=== PATIENT | male | born 1970 | race Hispanic/Latino ===

== ENCOUNTER 2019-05-16 03:47 | Emergency (ER) | payer OTHER ==
[2019-05-16 04:07] LABS: BASOPHILS % (AUTO) 1.4 % (0.0-5.0); EOSINOPHILS % (AUTO) 1.2 % (0.0-8.0); HEMATOCRIT 37.9 % (42-54); LYMPHOCYTES % (AUTO) 47.3 % (21.0-51.0); MEAN CORPUSCULAR HEMOGLOBIN 34.6 pg (27.0-33.0); MEAN CORPUSCULAR VOLUME 98.7 fL (79-99); MONOCYTES % (AUTO) 8.5 % (3.0-13.0); NEUTROPHILS % (AUTO) 41.6 % (40.0-77.0); NUCLEATED RED BLOOD CELLS 0.1 % (0.0-0.19); PLATELET COUNT (AUTO) 286 K/uL (130-400); RED BLOOD CELL COUNT(AUTO) 3.84 MIL/uL (4.50-6.20); RED CELL DISTRIBUTION WIDTH 12.7 % (11.0-15.5); WHITE BLOOD COUNT (AUTO) 7.1 K/uL (4.8-10.8)
[2019-05-16 04:18] LABS: INR 0.94 (0.85-1.15); PROTHROMBIN TIME 9.9 SEC (9.6-11.6)
[2019-05-16 04:21] LABS: ALBUMIN 3.6 g/dL (3.5-5.0); BILIRUBIN,TOTAL 0.3 mg/dL (0.2-1.0); CREATININE 0.9 mg/dL (0.5-1.5); TOTAL PROTEIN, SERUM 8.1 g/dL (6.0-8.3)
[2019-05-16 04:31] LABS: B-TYPE NATRIURETIC PEPTIDE 32 pg/mL (0-100)
[2019-05-16] MEDS ORDERED: IOHEXOL 350 MG/ML 100ML INFUS..BTL IV ONE (04:39)
[2019-05-16] MEDS ORDERED: SODIUM CHLORIDE 0.9% 1000ML 1,000 ML IV ONE (04:45)
[2019-05-16] MEDS ORDERED: FAMOTIDINE/PF 20 MG/2 ML VIAL IV ONE (04:45)
[2019-05-16 05:00] LABS: APPEARANCE,URINE Clear (CLEAR); BILIRUBIN,URINE Negative (NEGATIVE); COLOR,URINE Yellow (YELLOW); GLUCOSE, URINE (UA) Negative (NEGATIVE); KETONES,URINE Negative (NEGATIVE); LEUKOCYTE ESTERASE ,URINE Negative (NEGATIVE); NITRATE,URINE Negative (NEGATIVE); OCCULT BLOOD,URINE Negative (NEGATIVE); PROTEIN,URINE Negative (NEGATIVE); UROBILINOGEN,URINE 0.2 mg/dL (0.2-1.0)
[2019-05-16 05:10] LABS: AMPHET/METH SCREEN,URINE NEGATIVE (NEGATIVE); BARBITURATE SCREEN, URINE NEGATIVE (NEGATIVE); BENZODIAZEPINES SCREEN,URINE NEGATIVE (NEGATIVE); CANNABINOID SCREEN,URINE NEGATIVE (NEGATIVE); COCAINE SCREEN,URINE POSITIVE (NEGATIVE); OPIATE SCREEN,URINE NEGATIVE (NEGATIVE); PHENCYCLIDINE SCREEN,URINE NEGATIVE (NEGATIVE)
== END 2019-05-16 07:01 | disposition home or self-care (01) ==
LOC: EDH 03:47
DX: R10.13 Epigastric pain (principal); E86.9 Volume depletion, unspecified; F10.10 Alcohol abuse, uncomplicated; F14.10 Cocaine abuse, uncomplicated; Z72.0 Tobacco use
CPT/HCPCS: 36415; 71045; 71260; 74177; 80053; 80305; 81003; 82550; 83690; 83880; 84484; 85025; 85610; 85730; 93005; 96361 ×2; 96374; 96375; 99285; G0480; J3490; J7030; Q9967

== ENCOUNTER 2024-06-01 12:51 | Inpatient (IN) | payer SELFPAY ==
[~2024-06-01] VITALS: Ht 172.7 cm; Wt 63.0 kg
[2024-06-01 14:55] LABS: BASOPHILS # (AUTO) 0.03 K/uL (0.00-0.20); BASOPHILS % (AUTO) 0.3 % (0.0-5.0); EOSINOPHILS % (AUTO) 2.2 % (0.0-8.0); HEMATOCRIT 40.4 % (42-54); IMMATURE GRANULOCYTE ABSOLUTE 0.02 K/uL (0-1); LYMPHOCYTES # (AUTO) 2.5 K/uL (1.0-4.8); LYMPHOCYTES % (AUTO) 26.8 % (21.0-51.0); MEAN CORPUSCULAR HEMOGLOBIN 33.7 pg (27.0-33.0); MEAN CORPUSCULAR HGB CONC 33.7 g/dL (32.0-36.0); MEAN CORPUSCULAR VOLUME 100.2 fL (79-99); MONOCYTES # (AUTO) 0.9 K/uL (0.1-1.0); MONOCYTES % (AUTO) 10.2 % (3.0-13.0); NEUTROPHILS # (AUTO) 5.6 K/uL (1.8-7.7); NEUTROPHILS % (AUTO) 60.3 % (40.0-77.0); PLATELET COUNT (AUTO) 387 K/uL (130-400); RED BLOOD CELL COUNT(AUTO) 4.03 MIL/uL (4.50-6.20); RED CELL DISTRIBUTION WIDTH 12.1 % (11.0-15.5); WHITE BLOOD COUNT (AUTO) 9.3 K/uL (4.8-10.8)
[2024-06-01] MEDS ORDERED: 0.9%NACL 1000ML 1,000 ML IV SCH (15:00)
[2024-06-01 15:02] LABS: CREATININE 0.8 mg/dL (0.5-1.3); POTASSIUM 3.9 mmol/L (3.5-5.1)
[2024-06-01] MEDS ORDERED: COMPOUND IV REFRIGERATED 1 EACH IVSOLN MISC PRN ×2 (16:00)
[2024-06-01] MEDS ORDERED: PHARMACY COMMUNICATION MISC PRN (16:00)
[2024-06-01] MEDS ORDERED: chlordiazePOXIDE HCL 25 MG CAP PO PRN (16:00)
[2024-06-01] MEDS: THIAMINE HCL 100 MG, FOLic ACID 5 MG/ML VIAL 1 MG, M.V.I. IV [ADULT] 10 ML in 0.9%NACL ... IV SCH (17:18)
[2024-06-01] MEDS: ketOROlac 15MG/ML VIAL (15MG/ML) IV ONE (21:45)
[2024-06-02] VITALS (21 sets, daily range): BP systolic 100–139; BP diastolic 65–91; PULSE 69–85; RESP 15–19; TEMP 97.8–98.8; O2SAT 99
[2024-06-02 04:32] LABS: INR 1.01 (0.85-1.15); PROTHROMBIN TIME 10.9 SEC (9.6-11.6)
[2024-06-02 04:33] LABS: PARTIAL THROMBOPLASTIN TIME 26.8 SEC (26.3-35.5)
[2024-06-02] MEDS: PANTOPRAZOLE 40 MG/VIAL IVP SCH (08:15)
[2024-06-02] MEDS ORDERED: proPOFol 10 MG/ML 20ML VIAL IV ONE ×2 (11:03→11:08)
[2024-06-02] MEDS ORDERED: LIDOCAINE PF 100MG/5ML (2%) SYRINGE 5ML ONE (11:04)
[2024-06-02] MEDS: FOLic ACID 1 MG TABLET PO SCH (20:29)
[2024-06-02] MEDS: THIAMINE HCL 100 MG/ML 2ML VIAL IVP SCH (20:30)
[2024-06-02] MEDS: HYDROcodone/APAP 5/325 1 TAB TABLET PO PRN (20:37)
[2024-06-03] VITALS (7 sets, daily range): BP systolic 108–133; BP diastolic 67–81; PULSE 59–89; RESP 17–20; TEMP 97.9–98.8; O2SAT 99
[2024-06-04] VITALS: BP 130/75; PULSE 66; RESP 18; TEMP 98
[2024-06-04 04:00] VITALS: BP 125/76; PULSE 60; RESP 18; TEMP 98
[2024-06-04 06:40] LABS: ALBUMIN 2.7 g/dL (3.5-5.0); BILIRUBIN,TOTAL 0.2 mg/dL (0.2-1.0); CREATININE 0.9 mg/dL (0.5-1.3); MAGNESIUM 1.7 mg/dL (1.80-2.40); POTASSIUM 3.6 mmol/L (3.5-5.1); TOTAL PROTEIN, SERUM 6.8 g/dL (6.0-8.3)
[2024-06-04 06:46] LABS: BASOPHILS # (AUTO) 0.02 K/uL (0.00-0.20); BASOPHILS % (AUTO) 0.2 % (0.0-5.0); EOSINOPHILS # (AUTO) 0.21 K/uL (0.00-0.70); EOSINOPHILS % (AUTO) 2.4 % (0.0-8.0); HEMATOCRIT 36.4 % (42-54); IMMATURE GRANULOCYTE ABSOLUTE 0.03 K/uL (0-1); LYMPHOCYTES # (AUTO) 3.2 K/uL (1.0-4.8); MEAN CORPUSCULAR HEMOGLOBIN 33.5 pg (27.0-33.0); MEAN CORPUSCULAR HGB CONC 33.2 g/dL (32.0-36.0); MEAN CORPUSCULAR VOLUME 100.8 fL (79-99); MONOCYTES # (AUTO) 0.9 K/uL (0.1-1.0); MONOCYTES % (AUTO) 10.5 % (3.0-13.0); NEUTROPHILS # (AUTO) 4.5 K/uL (1.8-7.7); NEUTROPHILS % (AUTO) 50.6 % (40.0-77.0); PLATELET COUNT (AUTO) 386 K/uL (130-400); RED BLOOD CELL COUNT(AUTO) 3.61 MIL/uL (4.50-6.20); RED CELL DISTRIBUTION WIDTH 11.9 % (11.0-15.5); WHITE BLOOD COUNT (AUTO) 8.9 K/uL (4.8-10.8)
[2024-06-04 08:00] VITALS: BP_SYST 115; BP_SYST 122; BP_DIAS 76; BP_DIAS 77; PULSE 54; PULSE 72; RESP 18; RESP 19; TEMP 97.6; TEMP 98.7; O2SAT 99
[2024-06-04] MEDS ORDERED: ACET-2079 PO (09:27)
[2024-06-04 12:00] VITALS: BP 139/73; PULSE 66; RESP 19; TEMP 97.7
[2024-06-04 16:00] VITALS: BP 136/83; PULSE 71; RESP 19; TEMP 98.1
== END 2024-06-04 17:11 | disposition home or self-care (01) | DRG 392 ==
LOC: EDH 12:51 → EDHIP 12:52 → 4DH 22:20
PROVIDERS: ADMIT Hospitalist; ATTEND Hospitalist
PROC: 0DB98ZX Excision of Duodenum, Via Natural or Artificial Opening Endoscopic, Diagnostic (ICD-10-PCS; principal; 2024-06-02)
PROC: 0DB68ZX Excision of Stomach, Via Natural or Artificial Opening Endoscopic, Diagnostic (ICD-10-PCS; 2024-06-02)
PROC: 0DB38ZX Excision of Lower Esophagus, Via Natural or Artificial Opening Endoscopic, Diagnostic (ICD-10-PCS; 2024-06-02)
DX: R13.12 Dysphagia, oropharyngeal phase (principal); K29.70 Gastritis, unspecified, without bleeding; F17.210 Nicotine dependence, cigarettes, uncomplicated; F10.10 Alcohol abuse, uncomplicated; R62.7 Adult failure to thrive; K26.9 Duodenal ulcer, unspecified as acute or chronic, without hemorrhage or perforation; Z68.21 Body mass index [BMI] 21.0-21.9, adult
CPT/HCPCS: 36415; 43239; 70360; 70490; 71045; 71250; 74230; 80048; 80053; 82306; 82607; 82948; 83735; 84207; 84443; 85025; 85610; 85730; 87880; 92610; 92611; 96375; G0378; J1885; J2001; J2470; J2704; J3411; J3490; J7030; A4215; A4600; A4620